=== PATIENT | male | born 2000 | race Caucasian/White ===

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

== ENCOUNTER → 2018-01-07 | Outpatient (CLI) | payer OTHER ==
[2018-01-07 09:42] LABS: PLATELET COUNT, AUTOMATED 171 K/uL (150-450)
[2018-01-07 10:20] LABS: LDL CHOLESTEROL 76 mg/dl
== END ==
LOC: LAB 09:16
PROVIDERS: ATTEND Nurse Practitioner
DX: L70.9 Acne, unspecified (principal); Z79.899 Other long term (current) drug therapy
CPT/HCPCS: 36415; 82040; 82247; 82310; 82374; 82435; 82465; 82565; 82947; 83718; 84075; 84132; 84155; 84295; 84450; 84460; 84478; 84520; 85025

== ENCOUNTER → 2018-02-12 | Outpatient (CLI) | payer OTHER ==
[2018-02-12 10:46] LABS: PLATELET COUNT, AUTOMATED 187 K/uL (150-450)
[2018-02-12 10:55] LABS: LDL CHOLESTEROL 93 mg/dl
== END ==
LOC: LAB 10:24
PROVIDERS: ATTEND Nurse Practitioner
DX: Z51.81 Encounter for therapeutic drug level monitoring (principal); Z79.899 Other long term (current) drug therapy; L70.9 Acne, unspecified
CPT/HCPCS: 36415; 82040; 82247; 82310; 82374; 82435; 82465; 82565; 82947; 83718; 84075; 84132; 84155; 84295; 84450; 84460; 84478; 84520; 85025

== ENCOUNTER → 2018-03-05 | Outpatient (CLI) | payer OTHER ==
[2018-03-05 10:10] LABS: PLATELET COUNT, AUTOMATED 193 K/uL (150-450)
[2018-03-05 10:41] LABS: LDL CHOLESTEROL 81 mg/dl
== END ==
LOC: LAB 09:46
PROVIDERS: ATTEND Nurse Practitioner
DX: L70.9 Acne, unspecified (principal); Z79.899 Other long term (current) drug therapy
CPT/HCPCS: 36415; 82040; 82247; 82310; 82374; 82435; 82465; 82565; 82947; 83718; 84075; 84132; 84155; 84295; 84450; 84460; 84478; 84520; 85025

== ENCOUNTER → 2018-04-09 | Outpatient (CLI) | payer OTHER ==
[2018-04-09 08:59] LABS: PLATELET COUNT, AUTOMATED 197 K/uL (150-450)
[2018-04-09 09:10] LABS: LDL CHOLESTEROL 102 mg/dl
== END ==
LOC: LAB 08:40
PROVIDERS: ATTEND Nurse Practitioner
DX: L70.9 Acne, unspecified (principal); Z79.899 Other long term (current) drug therapy
CPT/HCPCS: 36415; 82040; 82247; 82310; 82374; 82435; 82465; 82565; 82947; 83718; 84075; 84132; 84155; 84295; 84450; 84460; 84478; 84520; 85025

== ENCOUNTER → 2018-05-06 | Outpatient (CLI) | payer OTHER ==
[2018-05-06 10:29] LABS: LDL CHOLESTEROL 100 mg/dl
[2018-05-06 10:40] LABS: PLATELET COUNT, AUTOMATED 205 K/uL (150-450)
== END ==
LOC: LAB 09:54
PROVIDERS: ATTEND Nurse Practitioner
DX: L70.9 Acne, unspecified (principal); Z79.899 Other long term (current) drug therapy
CPT/HCPCS: 36415; 82040; 82247; 82310; 82374; 82435; 82465; 82565; 82947; 83718; 84075; 84132; 84155; 84295; 84450; 84460; 84478; 84520; 85025

== ENCOUNTER → 2018-05-22 | Outpatient (CLI) | payer OTHER ==
[~2018-05-22] MED LIST changes: +ISOT30CA4 PO
[2018-05-22 11:03] LABS: PLATELET COUNT, AUTOMATED 225 K/uL (150-450)
[2018-05-23 14:44] LABS: LDL CHOLESTEROL 96 mg/dl
== END ==
LOC: LAB 09:43
PROVIDERS: ATTEND Nurse Practitioner
DX: L70.9 Acne, unspecified (principal); Z79.899 Other long term (current) drug therapy
CPT/HCPCS: 36415; 82040; 82247; 82310; 82374; 82435; 82465; 82565; 82947; 83718; 84075; 84132; 84155; 84295; 84450; 84460; 84478; 84520; 85025

== ENCOUNTER → 2018-06-20 | Outpatient (CLI) | payer OTHER ==
[~2018-06-20] MED LIST changes: -HYDR-4309 PO; +HYDR-653 PO
== END ==
LOC: LAB 14:44
PROVIDERS: ATTEND Nurse Practitioner Primary Care
DX: J02.9 Acute pharyngitis, unspecified (principal)
CPT/HCPCS: 87081